=== PATIENT | female | born 1970 | race Two or more races ===

== ENCOUNTER → 2021-11-28 | Day surgery (SDC) | payer OTHER ==
[~2021-11-28] MED LIST: BENADRYL25 MG PO; MEDROL8 MG PO; PERCOCET 5-3251 EACH PO; RECTICARE30 GM TOP; SYNTHROID100 MCG PO; XOLAIR150 MG/1 M SQ
== END | disposition home or self-care (01) ==
LOC: ADM 11-25 11:15 → CIR.AMB 06:00
PROVIDERS: ATTEND Surgery
DX: K64.4 Residual hemorrhoidal skin tags (principal); K64.8 Other hemorrhoids; Z20.822 Contact with and (suspected) exposure to COVID-19